=== PATIENT | male | born 1960 | race Two or more races ===

== ENCOUNTER → 2018-09-13 | Outpatient (CLI) | payer OTHER ==
[~2018-09-13] MED LIST: ALPHA LIPOIC A200 MG PO; ASPIR 8181 MG PO; CHROMIUM PICO400 MCG PO; CLINDAMYCIN 300MG 50 ML IV ONE; FISH OIL 1,0001 EAC2 PO; GARLIC400 M1 PO; GENTAMICIN 120MG/NS 100ML 100 ML ONE; GLIMEPIRIDE2 MG PO; HYDROCHLOROTHIA25 MG PO; METFORMIN HCL500 MG PO; METOPROLOL TART25 MG PO; NORCO 5-325 TA1 EACH PO; PANTOPRAZOLE SO40 MG PO; Z.0.LIPITOR10 MG PO; Z.0.LISINOPRIL40 MG PO; Z.2.METFORMIN HCL500 PO
[2018-09-13 15:41] LABS: BASOPHILS # (AUTO) 0.1 (0.0-0.1); BASOPHILS % 0.8 % (0.0-1.0); EOSINOPHILS # (AUTO) 0.1 (0.0-0.4); EOSINOPHILS % 1.5 % (0.0-6.0); HEMATOCRIT 36.9 % (38.2-49.6); HEMOGLOBIN 12.1 g/dL (14.0-18.0); LYMPHOCYTES % 27.1 % (18.0-39.1); MEAN CORPUSCULAR HGB CONC 32.8 g/dL (31-35); MEAN CORPUSCULAR VOLUME 91.3 fL (81-99); MONOCYTES # (AUTO) 0.5 (0.2-0.8); MONOCYTES % 7.1 % (4.4-11.3); NEUTROPHILS # (AUTO) 4.6 (2.1-6.9); NEUTROPHILS % 63.2 % (38.7-80.0); PLATELET COUNT 294 x10e3/uL (140-360); RED BLOOD COUNT 4.04 x10e6/uL (4.3-5.7); RED CELL DISTRIBUTION WIDTH 12.5 % (11.7-14.4)
[2018-09-13 15:56] LABS: INR 0.87; PROTHROMBIN TIME 12.3 seconds (11.9-14.5)
[2018-09-13 16:04] LABS: ANION GAP 15.6 mmol/L (8-16); BLOOD UREA NITROGEN 17 mg/dL (7-26); BUN/CREATININE RATIO 20 (6-25); CARBON DIOXIDE 26 mmol/L (22-29); CHLORIDE 101 mmol/L (98-107); CREATININE, SERUM 0.87 mg/dL (0.72-1.25); EST GLOMERULAR FILTRATION RATE > 60 ML/MIN (60-); GLUCOSE 228 mg/dL (74-118); POTASSIUM 4.6 mmol/L (3.5-5.1); SODIUM 138 mmol/L (136-145)
--- OUTSIDE RECORDS SUMMARY | 2018-09-19 10:53 | XMS REPORT | Summary of Care ---
Author Liz Duong Organization Unknown Address Unknown Phone Unavailable Care Team Providers Care Harness Maker Name Role Phone JOSSE CARRASQUILLO D.O. Unavailable Unavailable Josse Carrasquillo DO Unavailable Unavailable Unavailable Unavailable Functional Status Name Dates Details Functional status health issues are not documented Status: Name Dates Details Cognitive status health issues are not documented Status: Problems Name Dates Details Pain, foot, chronic, left (729.5, M79.672) Status: Active Sprain of foot, left (845.10, S93.602A) Status: Active Hand pain (729.5, M79.643) Status: Active Bilateral carpal tunnel syndrome (354.0, G56.03) Status: Active Medications Name Dates Details metFORMIN HCl - 500 MG Oral Tablet Active Allergies and Adverse Reactions Name Dates Details No Known Drug Allergies (Allergy) Status: Active Past Medical History Name Dates Details History of diabetes mellitus (V12.29, Z86.39) Status: Resolved History of hypertension (V12.59, Z86.79) Status: Resolved History of No pertinent past surgical history (V49.89, Z78.9) Status: Resolved Procedures Procedure Dates Details Occupational Therapy Date: 04-Jul-2018 Immunization Name Dates Details Immunizations not documented Family History Name Dates Details Family history of diabetes mellitus (V18.0, Z83.3) Status: Active Family history of malignant neoplasm (V16.9, Z80.9) Status: Active Family history of Heart abnormality (746.9, Q24.9) Status: Active Name Dates Details Family history of diabetes mellitus (V18.0, Z83.3) Status: Active Family history of malignant neoplasm (V16.9, Z80.9) Status: Active Family history of Heart abnormality (746.9, Q24.9) Status: Active Social History Name Dates Details Unknown if ever smoked Vital Signs Date Test Result Details No Known Vitals to report Results Date Description Value Details Results not documented Plan of Care Name Dates Details Planned Observations Planned Goals not documented Planned Encounters Appointment; JOSSE CARRASQUILLO D.O. On: 01-Aug-2018 9:45 Interventions Provided Labs/Procedures/Imaging* Occupational Therapy; To Be Done: 04 Jul 2018 Instructions Name Dates Details Instructions not documented Encounters Appointment; NICKO STEWARD M.D. Encounter Diagnosis: Problem not documented On: 02-Oct-2017 10:00 Appointment; JOSSE CARRASQUILLO D.O. Encounter Diagnosis: Problem not documented On: 11-Jun-2018 10:30 Appointment; JOSSE CARRASQUILLO D.O. Encounter Diagnosis: Problem not documented On: 04-Jul-2018 8:00
== END | disposition home or self-care (01) ==
LOC: RAD 05:00 → OR 09-19 10:50 → EDSTATUS 09-19 13:30
PROVIDERS: ATTEND Urology
DX: R97.20 Elevated prostate specific antigen [PSA] (principal); Z01.810 Encounter for preprocedural cardiovascular examination; Z01.812 Encounter for preprocedural laboratory examination; Z53.09 Procedure and treatment not carried out because of other contraindication
CPT/HCPCS: 36415; 80048; 82948; 85025; 85610; 85730; 93005; J1580